=== PATIENT | female | born 1955 | race Caucasian/White ===

== ENCOUNTER → 2017-10-26 | Outpatient (CLI) | payer BC ==
[~2017-10-26] MED LIST: COZAAR 50MG50 MG/TAB PEG; MVI; OSCAL 500MG/VI500 MG PO; PEPCID 20MG TAB20 MG PO
== END ==
LOC: MC.RAD 07:34
DX: Z12.31 Encounter for screening mammogram for malignant neoplasm of breast (principal)

== ENCOUNTER → 2018-12-04 | Outpatient (CLI) | payer BC | LOC: MC.RAD 07:30 | DX: Z12.31 Encounter for screening mammogram for malignant neoplasm of breast (principal) ==

== ENCOUNTER → 2021-04-19 | Outpatient (CLI) | payer MEDICARE | LOC: MC.RAD 11:04 | DX: Z12.31 Encounter for screening mammogram for malignant neoplasm of breast (principal) ==

== ENCOUNTER → 2022-05-19 | Outpatient (CLI) | payer MEDICARE | LOC: MC.RAD 14:19 | DX: Z12.31 Encounter for screening mammogram for malignant neoplasm of breast (principal) ==

== ENCOUNTER → 2023-05-22 | Outpatient (CLI) | payer MEDICARE | LOC: MC.RAD 13:56 | DX: Z12.31 Encounter for screening mammogram for malignant neoplasm of breast (principal) ==